=== PATIENT | female | born 1990 | race Caucasian/White ===

== ENCOUNTER 2019-12-13 10:57 | Outpatient (REF) | payer OTHER, SELFPAY ==
[2019-12-13 11:35] LABS: COVID-19 Test Negative (Negative)
== END 2019-12-13 10:58 | disposition home or self-care (01) ==
LOC: HO.LAB 10:57
PROVIDERS: Visit Provider Internal Medicine
DX: Z20.828 Contact with and (suspected) exposure to other viral communicable diseases (principal)
CPT/HCPCS: 87635

== ENCOUNTER 2020-04-07 10:39 | Outpatient (REF) | payer OTHER, SELFPAY ==
[2020-04-09 19:52] LABS: TS Negative Control Passed; TS Panel A 0; TS Panel B 0; TS Positive Control Passed; TSpotTB Negative (SeeBelow)
== END 2020-04-07 10:40 | disposition home or self-care (01) ==
LOC: HO.LAB 10:39
PROVIDERS: PCP Family Medicine; Visit Provider Physician Assistant Medical
DX: Z01.84 Encounter for antibody response examination (principal)
CPT/HCPCS: 36415; 86481

== ENCOUNTER 2020-04-18 08:12 | Outpatient (REF) | payer OTHER, SELFPAY ==
[2020-04-18 08:28] LABS: COVID-19 Test Negative (Negative)
== END 2020-04-18 08:13 | disposition home or self-care (01) ==
LOC: HO.EMPCOV 08:12
PROVIDERS: Visit Provider Internal Medicine
DX: Z20.822 Contact with and (suspected) exposure to COVID-19 (principal)
CPT/HCPCS: 36415; 87635; C9803

== ENCOUNTER → 2021-12-17 11:58 | Outpatient (RCR) | payer OTHER, SELFPAY ==
[2020-01-10 17:05] LABS: COVID-19 Test Negative (Negative); IDNOW Serial# 55D5AD1C
[2020-01-16 13:58] LABS: COVID-19 Test Negative (Negative); IDNOW Serial# 55D5AD1C
[2020-01-23 07:19] LABS: COVID-19 Test Negative (Negative); IDNOW Serial# 55D5AD1C
[2020-01-29 13:53] LABS: COVID-19 Test Negative (Negative)
[2020-02-01 13:53] LABS: COVID-19 Test Negative (Negative)
[2020-02-11 10:01] LABS: SARS-COV-2 PCR UMBRL Not Detected
[2020-02-16 14:03] LABS: SARS-COV-2 PCR UMBRL NOT DETECTED
[2020-02-25 09:39] LABS: SARS-COV-2 PCR UMBRL Not Detected
[2020-03-03 10:00] LABS: SARS-COV-2 PCR UMBRL Not Detected
[2020-03-12 09:49] LABS: SARS-COV-2 PCR UMBRL NOT DETECTED
[2020-03-17 08:53] LABS: SARS-COV-2 PCR UMBRL NEGATIVE
[2020-03-25 09:23] LABS: COVID-19 Test Negative (Negative)
== END | disposition home or self-care (01) ==
LOC: HO.EMPCOV 01-10 15:48
PROVIDERS: Visit Provider Internal Medicine
DX: Z20.828 Contact with and (suspected) exposure to other viral communicable diseases (principal)
CPT/HCPCS: 36415; 87635; C9803; U0003